=== PATIENT | female | born 1965 | race Caucasian/White ===

== ENCOUNTER 2018-12-20 21:12 | Emergency (ER) | payer BC, OTHER ==
[~2018-12-20] VITALS: Ht 157.5 cm; Wt 104.3 kg
[2018-12-20 21:25] VITALS: BP_SYST 149
--- NOTE | 2018-12-20 21:37 | NUR ---
Pt ambulatory to bed 5 for evaluation
--- NOTE | 2018-12-20 21:40 | NUR ---
Patient to ER via triage for evaluation of headache, fever and chills. Patient reports that she was seen at [facility] earlier today and DX with UTI, given Cipro. Patient is awake, alert and oriented in no acute distress, patient with temp of 101.6 and HR 133. Respirations even and unlabored, skin warm and dry to touch. Patient able to ambulate without difficulty with slow, steady gait to bed 5. Awaiting evaluation by ER MD, will continue to observe and assess.
--- NOTE | 2018-12-20 22:00 | NUR ---
ER at bedside examining patient.
[2018-12-20] MEDS ORDERED: ACETAMINOPHEN 500 MG TABLET PO ONE (22:15)
[2018-12-20] MEDS ORDERED: ONDANSETRON HCL 4 MG/2 ML VIAL IVP ONE (22:30)
[2018-12-20] MEDS ORDERED: cefTRIAXone 1 GM in D5W 50 ML IV ONE (22:30)
[2018-12-20] MEDS ORDERED: NACL 0.9% 1,000 ML IV ONE (22:30)
[2018-12-20] MEDS ORDERED: MORPHINE 4 MG/ML INJ. SYRINGE IVP ONE (22:30)
[2018-12-20] MEDS ORDERED: cefTRIAXone 1 GM VIAL ONE (22:45)
--- NOTE | 2018-12-20 23:00 | NUR ---
Patient resting quietly in no acute distress, IV fluids infusing without difficulty, no redness or swelling noted at site. No adverse reaction noted to medication.
--- NOTE | 2018-12-20 23:15 | NUR ---
Patient encouraged to provide urine sample, IV fluds infusing without difficulty, no redness or swelling noted at site.
[2018-12-20 23:24] LABS: BASOPHILS # (AUTO) 0.1 K/uL (0.0-0.2); BASOPHILS % (AUTO) 0.5 % (0.0-2.0); CALCIUM 9.4 mg/dL (8.4-11.0); CREATININE 0.92 mg/dL (0.55-1.30); EOSINOPHILS % (AUTO) 0.3 % (0.0-4.0); HEMATOCRIT 45.4 % (36-48); HEMOGLOBIN 15.1 g/dL (12.0-16.0); LYMPHOCYTES # (AUTO) 0.3 K/uL (1.0-5.5); LYMPHOCYTES % (AUTO) 3.2 % (20.5-51.5); MEAN CORPUSCULAR HEMOGLOBIN 28 pg (27-31); MEAN CORPUSCULAR HGB CONC 33 % (32-36); MEAN CORPUSCULAR VOLUME 85 fL (79.0-98.0); MONOCYTES # (AUTO) 0.4 K/uL (0.0-1.0); MONOCYTES % (AUTO) 4.1 % (1.7-9.3); NEUTROPHILS # (AUTO) 9.5 K/uL (1.8-7.7); NEUTROPHILS % (AUTO) 91.9 % (40.0-70.0); POTASSIUM 3.6 mmol/L (3.5-5.1); RED BLOOD CELL COUNT(AUTO) 5.35 MIL/uL (4.2-6.2); RED CELL DISTRIBUTION WIDTH 14.5 % (9.0-15.0); WHITE BLOOD COUNT (AUTO) 10.4 K/uL (4.8-10.8)
[2018-12-20 23:28] LABS: ALBUMIN 3.7 g/dL (3.4-4.8); TOTAL BILIRUBIN 0.4 mg/dL (0.0-1.0)
[2018-12-20 23:48] LABS: PLATELET COUNT (AUTO) 79 K/uL (130-430)
[2018-12-21] MEDS ORDERED: NACL 0.9% 1,000 ML IV ONE (00:15)
--- NOTE | 2018-12-21 00:15 | NUR ---
Patient resting quietly in no acute distress, IV fluids infusing without difficulty, no redness or swelling noted at site. Awaiting dispo, will continue to observe and assess. Family remains at bedside.
[2018-12-21 00:34] LABS: BILIRUBIN,URINE NEGATIVE (NEGATIVE); BLOOD, URINE 1+ (NEGATIVE); CLARITY/URINE CLEAR (CLEAR); COLOR,URINE YELLOW (YELLOW); GLUCOSE,URINE NEGATIVE (NEGATIVE); KETONES,URINE NEGATIVE (NEGATIVE); LEUKOCYTE ESTERASE ,URINE TRACE (NEGATIVE); NITRITE, URINE NEGATIVE (NEGATIVE); PROTEIN URINE 1+ (NEGATIVE); UROBILINOGEN,URINE 0.2 (0.2-1.0)
[2018-12-21 00:38] LABS: BACTERIA,URINE RARE /HPF (None Seen)
[2018-12-21] MEDS ORDERED: PIPERACILLIN/TAZO 3.375 GM in NS 50 ML IV ONE (01:00)
[2018-12-21] MEDS ORDERED: NACL 0.9% 2,000 ML IV ONE (01:00)
[2018-12-21] MEDS ORDERED: PIPERACILLIN/TAZOBACTAM 3.375 GM/VIAL (ZOSYN) IV ONE (01:11)
--- NOTE | 2018-12-21 01:15 | NUR ---
Assessment remains unchanged, IV fluids infusing without difficulty, no redness or swelling noted at site. Family remains at bedside. Awaiting transfer to [place].
--- NOTE | 2018-12-21 02:15 | NUR ---
Patient to ultrasound in stable condition via wheelchair.
--- NOTE | 2018-12-21 02:30 | NUR ---
Patient returned from ultrasound in stable condition.
--- NOTE | 2018-12-21 03:15 | NUR ---
Patient to be transferred to [facility]. Is being transferred due to [employer]. Receiving facility has accepting physician and available space. ER physician has signed transfer form. Patient or responsible republican has agreed to transfer and signed form. Patient belongings inventoried and will be sent with patient. Copy of nursing notes, lab reports, EKG, Physicians Orders and X-rays to be sent with patient. Report called to Susy at receiving facility. Receiving physician is Rohith. [facility] service has been called for transfer. ETA is [id number].
--- NOTE | 2018-12-21 03:35 | NUR ---
Patient resting quietly in no acute distress, vital signs stable, respirations even and unlabored, skin warm and dry to touch. IV patent. No adverse reaction noted to medication. Awaiting transport to [place]. Report to Danica for continued care.
[2018-12-21 03:55] VITALS: BP_SYST 110
--- NOTE | 2018-12-21 03:55 | NUR ---
Transport team is here, report given to transport team.
== END 2018-12-21 03:55 | disposition short-term general hospital (02) ==
LOC: SED 21:12
DX: K80.20 Calculus of gallbladder without cholecystitis without obstruction (principal); N39.0 Urinary tract infection, site not specified; E87.2 Acidosis; R03.0 Elevated blood-pressure reading, without diagnosis of hypertension; Z88.6 Allergy status to analgesic agent
CPT/HCPCS: 36415; 76700; 80053; 81000; 83605; 85025; 87040; 87086; 93005; 96361; 96365; 96367; 99285; J0696; J2543; J7030; J2270; J2405